=== PATIENT | male | born 1990 | race Caucasian/White ===

== ENCOUNTER 2023-07-10 03:11 | Emergency (ER) | payer OTHER ==
[~2023-07-10] VITALS: Ht 177.8 cm; Wt 81.6 kg
[2023-07-10 03:13] VITALS: BP 146/101; PULSE 89; RESP 16; TEMP 97.7; O2SAT 100
[2023-07-10 03:37] VITALS: O2SAT 98
[2023-07-10 04:08] VITALS: BP 136/95; PULSE 89; RESP 16; TEMP 98.2; O2SAT 98
== END 2023-07-10 04:38 | disposition left against medical advice (07) ==
LOC: MED 03:11
DX: S61.011A Laceration without foreign body of right thumb without damage to nail, initial encounter (principal); S61.214A Laceration without foreign body of right ring finger without damage to nail, initial encounter; Z79.899 Other long term (current) drug therapy; W26.0XXA Contact with knife, initial encounter; Y93.89 Activity, other specified; Y92.89 Other specified places as the place of occurrence of the external cause; Y99.8 Other external cause status
CPT/HCPCS: 99281